=== PATIENT | male | born 1975 | race Two or more races ===

== ENCOUNTER 2019-01-26 00:55 | Inpatient (IN) | payer MEDICAID ==
[~2019-01-26] VITALS: Ht 167.6 cm; Wt 65.9 kg
[2019-01-26] MEDS ORDERED: SODIUM CHLORIDE 0.9% 2,000 ML IV ONE (02:42)
[2019-01-26] MEDS ORDERED: KETOROLAC TROMETHAMINE 30 MG/ML VIAL IVP ONE (02:45)
[2019-01-26] MEDS ORDERED: 0.9% SODIUM CHLORIDE 10 ML SYRINGE IVP PRN ×2 (02:45→03:45)
[2019-01-26] MEDS ORDERED: VANCOMYCIN HCL 1 GM/D5% WATER 200 ML IV ONE ×2 (02:45→09:00)
[2019-01-26] MEDS ORDERED: PIPERACILLIN/TAZO 3.375 GM/D5W 50 ML IV ONE (02:45)
[2019-01-26 03:31] LABS: ANION GAP 8 mmol/L (8-16); CALCIUM, TOTAL 8.9 mg/dL (8.8-10.5); CARBON DIOXIDE 29 mmol/L (22-29); CHLORIDE 100 mmol/L (98-107); CREATININE 1.01 mg/dL (0.60-1.30); GLOMERULAR FILTR. RATE CALC > 60 mL/min (>60); GLUCOSE,RANDOM 95 mg/dL (70-110); POTASSIUM 3.4 mmol/L (3.5-5.1); SODIUM SERUM 137 mmol/L (136-145); UREA NITROGEN, BLOOD 11 mg/dL (7-18)
[2019-01-26 03:34] LABS: BASOPHILS % (AUTO) 0.2 % (0.0-2.0); EOSINOPHILS % (AUTO) 0.4 % (1.0-6.0); HEMATOCRIT 46.8 % (41-53); HEMOGLOBIN 15.7 g/dL (13.5-17.5); LYMPHOCYTES # (AUTO) 0.9 K/uL (1.0-4.8); LYMPHOCYTES % (AUTO) 5.9 % (22.0-44.0); MEAN CORPUSCULAR HEMOGLOBIN 30.1 pg (26.0-34.0); MEAN CORPUSCULAR HGB CONC 33.5 G/dL (31.0-37.0); MEAN CORPUSCULAR VOLUME 90 fL (80-100); MONOCYTES # (AUTO) 1.6 K/uL (0.1-1.0); NEUTROPHILS % (AUTO) 83.5 % (40.0-70.0); PLATELET COUNT (AUTO) 297 K/uL (150-450); RED BLOOD CELL COUNT(AUTO) 5.21 MIL/uL (4.50-5.90); RED CELL DISTRIBUTION WIDTH 14.1 % (11.5-14.5)
[2019-01-26 03:37] LABS: ALANINE AMINOTRANSFERASE 45 U/L (12-78); ALBUMIN 3.6 g/dL (3.4-5.0); ALKALINE PHOSPHATASE 57 U/L (46-116); ASPARTATE AMINOTRANSFERASE 27 U/L (15-37); BILIRUBIN,TOTAL 0.7 mg/dL (0.1-1.0); TOTAL PROTEIN, SERUM 7.9 g/dL (6.4-8.2)
[2019-01-26 03:40] LABS: LACTIC ACID 0.6 mmol/L (0.4-2.0)
[2019-01-26] MEDS ORDERED: ONDANSETRON HCL 4 MG/2 ML VIAL IVP PRN ×2 (03:45→09:00)
[2019-01-26] MEDS ORDERED: HYDROCODONE/ACETAMINOPHEN 5-325 MG TABLET PO PRN ×2 (03:45→09:00)
[2019-01-26] MEDS ORDERED: ACETAMINOPHEN 325 MG TABLET PO PRN ×2 (03:45→09:00)
[2019-01-26 05:06] VITALS: BP 98/65
[2019-01-26] MEDS ORDERED: BISACODYL 10 MG RECTAL RECTAL SUPPOSITORY PR PRN (09:00)
[2019-01-26] MEDS ORDERED: MAGNESIUM HYDROXIDE SUSPENSION 30 ML UDCUP PO PRN (09:00)
[2019-01-26] MEDS ORDERED: ZOLPIDEM TARTRATE 5 MG TABLET PO PRN (09:00)
[2019-01-26] MEDS ORDERED: MORPHINE SULFATE 2 MG/ML SYRINGE IVP PRN (09:00)
[2019-01-26] MEDS: PANTOPRAZOLE SODIUM 40 MG DR TABLET PO SCH (10:46)
[2019-01-26] MEDS: DOCUSATE SODIUM 100 MG CAPSULE PO SCH ×2 (10:46→20:21)
[2019-01-26 13:33] VITALS: BP 98/62
[2019-01-26 15:24] VITALS: BP 134/66
[2019-01-26] MEDS: HEPARIN SODIUM,PORCINE 5,000 UNITS/ML VIAL SQ SCH ×2 (16:00→23:36)
[2019-01-26] MEDS: VANCOMYCIN HCL 750 MG in DEXTROSE 5%-WATER 250 ML IV SCH ×2 (16:52→23:36)
[2019-01-26] MEDS: PIPERACILLIN/TAZO 3.375 GM/D5W 50 ML IV SCH ×2 (17:50→22:53)
[2019-01-26 20:51] VITALS: BP 122/57
[2019-01-27] VITALS (7 sets, daily range): BP systolic 94–114; BP diastolic 51–64
[2019-01-27] MEDS: PIPERACILLIN/TAZO 3.375 GM/D5W 50 ML IV SCH ×4 (05:53→23:00)
[2019-01-27] MEDS: VANCOMYCIN HCL 750 MG in DEXTROSE 5%-WATER 250 ML IV SCH ×3 (06:20→23:38)
[2019-01-27 06:45] LABS: BASOPHILS % (AUTO) 0.3 % (0.0-2.0); EOSINOPHILS % (AUTO) 1.5 % (1.0-6.0); HEMOGLOBIN 13.6 g/dL (13.5-17.5); LYMPHOCYTES # (AUTO) 1.3 K/uL (1.0-4.8); LYMPHOCYTES % (AUTO) 11.5 % (22.0-44.0); MEAN CORPUSCULAR HEMOGLOBIN 29.8 pg (26.0-34.0); MEAN CORPUSCULAR HGB CONC 33.1 G/dL (31.0-37.0); MEAN CORPUSCULAR VOLUME 90 fL (80-100); MONOCYTES # (AUTO) 1.2 K/uL (0.1-1.0); MONOCYTES % (AUTO) 10.8 % (2.0-9.0); NEUTROPHILS # (AUTO) 8.6 K/uL (1.8-7.7); NEUTROPHILS % (AUTO) 75.9 % (40.0-70.0); PLATELET COUNT (AUTO) 245 K/uL (150-450); RED BLOOD CELL COUNT(AUTO) 4.55 MIL/uL (4.50-5.90); RED CELL DISTRIBUTION WIDTH 13.7 % (11.5-14.5)
[2019-01-27 07:20] LABS: ALANINE AMINOTRANSFERASE 38 U/L (12-78); ALBUMIN 2.5 g/dL (3.4-5.0); ALKALINE PHOSPHATASE 55 U/L (46-116); ANION GAP 6 mmol/L (8-16); ASPARTATE AMINOTRANSFERASE 24 U/L (15-37); BILIRUBIN,TOTAL 0.5 mg/dL (0.1-1.0); CALCIUM, TOTAL 8.3 mg/dL (8.8-10.5); CARBON DIOXIDE 26 mmol/L (22-29); CHLORIDE 106 mmol/L (98-107); CREATININE 0.82 mg/dL (0.60-1.30); GLOMERULAR FILTR. RATE CALC > 60 mL/min (>60); GLUCOSE,RANDOM 95 mg/dL (70-110); POTASSIUM 3.5 mmol/L (3.5-5.1); SODIUM SERUM 138 mmol/L (136-145); TOTAL PROTEIN, SERUM 6.2 g/dL (6.4-8.2); VANCOMYCIN,RANDOM 12.7 mcg/mL (25.0-50.0)
[2019-01-27 07:46] LABS: UREA NITROGEN, BLOOD 6 mg/dL (7-18)
[2019-01-27] MEDS: DOCUSATE SODIUM 100 MG CAPSULE PO SCH ×2 (08:19→21:00)
[2019-01-27] MEDS: HEPARIN SODIUM,PORCINE 5,000 UNITS/ML VIAL SQ SCH ×2 (08:19→16:00)
[2019-01-27] MEDS: PANTOPRAZOLE SODIUM 40 MG DR TABLET PO SCH (08:19)
[2019-01-28] MEDS: PIPERACILLIN/TAZO 3.375 GM/D5W 50 ML IV SCH ×2 (04:44→11:20)
[2019-01-28 05:21] VITALS: BP 108/71
[2019-01-28] MEDS: VANCOMYCIN HCL 750 MG in DEXTROSE 5%-WATER 250 ML IV SCH ×2 (06:07→14:27)
[2019-01-28 06:13] LABS: ANION GAP 6 mmol/L (8-16); CALCIUM, TOTAL 8.5 mg/dL (8.8-10.5); CARBON DIOXIDE 27 mmol/L (22-29); CHLORIDE 106 mmol/L (98-107); CREATININE 0.92 mg/dL (0.60-1.30); GLOMERULAR FILTR. RATE CALC > 60 mL/min (>60); GLUCOSE,RANDOM 130 mg/dL (70-110); SODIUM SERUM 139 mmol/L (136-145); UREA NITROGEN, BLOOD 7 mg/dL (7-18)
[2019-01-28 08:00] VITALS: BP 115/56
[2019-01-28] MEDS: PANTOPRAZOLE SODIUM 40 MG DR TABLET PO SCH (08:04)
[2019-01-28] MEDS: HEPARIN SODIUM,PORCINE 5,000 UNITS/ML VIAL SQ SCH ×2 (08:04)
[2019-01-28] MEDS: DOCUSATE SODIUM 100 MG CAPSULE PO SCH (08:04)
[2019-01-28] MEDS ORDERED: BACTDSB PO (10:22)
[2019-01-28] MEDS ORDERED: [UNRECOGNIZED DRUG - OTHER] TP (10:22)
[2019-01-28] MEDS ORDERED: CEPH500 PO (10:22)
[2019-01-28 13:02] VITALS: BP 94/69
== END 2019-01-28 17:30 | disposition home or self-care (01) | DRG 720 ==
LOC: EMS 01:00 → 4E 04:00
PROVIDERS: ADMIT Internal Medicine; ATTEND Internal Medicine
DX: A41.9 Sepsis, unspecified organism (principal); E87.6 Hypokalemia; L03.113 Cellulitis of right upper limb; F19.10 Other psychoactive substance abuse, uncomplicated
CPT/HCPCS: 83605; 87040; 93005; G0378; J1644; J1885; J2543; J3370; J7060

== ENCOUNTER 2021-09-20 17:15 | Emergency (ER) | payer MEDICAID ==
[~2021-09-20] VITALS: Ht 165.1 cm; Wt 59.1 kg
[~2021-09-20 17:15] MED LIST: BACTDSB PO; CEPH500C3 PO; [UNRECOGNIZED DRUG - OTHER] TP
[2021-09-20] MEDS ORDERED: SULF-261 PO (19:51)
[2021-09-20] MEDS ORDERED: CEPH500C3 PO (19:51)
[2021-09-20 20:00] VITALS: BP 142/78
== END 2021-09-20 20:05 | disposition home or self-care (01) ==
LOC: EMS 17:19
DX: L03.116 Cellulitis of left lower limb (principal); F17.210 Nicotine dependence, cigarettes, uncomplicated; Z79.899 Other long term (current) drug therapy
CPT/HCPCS: 99283; Z7502